=== PATIENT | female | born 1950 | race Caucasian/White ===

== ENCOUNTER 2017-01-24 17:20 | Emergency (ER) | payer OTHER ==
[2017-01-24] MEDS ORDERED: NS 1,000 ML IV ONE (17:58)
[2017-01-24] MEDS ORDERED: ONDANSETRON 4 MG/2 ML VIAL IVP ONE (17:58)
--- NOTE | 2017-01-24 18:00 | EDPHY ---
H & P Stated Complaint: nausea x 2 weeks;feels bloated;hard stool Time Seen by Provider: 01/24/17 17:46 HPI/ROS: Chief complaint: Nausea, abdominal discomfort History of present illness: This is a 66-year-old female who presents to the emergency department for evaluation of nausea. Patient reports the onset of symptoms over the last 2 weeks. Symptoms have been slowly worsening. She states over the last week she has developed abdominal discomfort. She describes a fullness. She does state she has had loss of appetite and decreasing stool output that is harder than usual. She denies precipitating factors. She denies alleviating factors. She denies other associated signs or symptoms including no fevers, no actual vomiting, no diarrhea, no urinary symptoms. Review of systems: A 10 point review of systems was obtained and other than described above was negative - Personal History Current Tetanus Diphtheria and Acellular Pertussis (TDAP): Yes - Medical/Surgical History Other PMH: Ortho - Family History Significant Family History: Cancer - Social History Smoking Status: Never smoked - Physical Exam Exam: General Appearance: Alert, nontoxic. Eyes: Pupils equal and round no pallor or injection. ENT, Mouth: Mucous membranes moist. Respiratory: There are no retractions, lungs are clear to auscultation. Cardiovascular: Regular rate and rhythm. Gastrointestinal: Bowel sounds are hypoactive. The abdomen is mildly distended. Diffuse tenderness. Neurological: Alert and oriented x4. Strength and sensation intact and symmetrical. Skin: Warm and dry, no rashes. Musculoskeletal: Neck is supple nontender. Extremities are symmetrical, full range of motion. Psychiatric: Patient is oriented X 3, there is no agitation. Constitutional: Initial Vital Signs Temperature (C) 36.7 C 01/24/17 17:22 Heart Rate 64 01/24/17 17:22 Respiratory Rate 18 01/24/17 17:22 Blood Pressure 137/87 H 01/24/17 17:22 O2 Sat (%) 95 01/24/17 17:22 O2 Delivery Mode Room Air Allergies/Adverse Reactions: Sulfa (Sulfonamide Antibiotics) Allergy (Intermediate, Verified 01/24/17 17:25) Hives clarithromycin [From Biaxin] Adverse Reaction (Mild, Verified 01/24/17 17:25) upset stomach Home Medications: Medication Instructions Recorded Lisinopril [Zestril 30 mg] 30 mg PO DAILY 11/03/12 Cephalexin [Keflex] 500 mg PO TID 7 Days 01/24/17 Ondansetron Odt [Zofran Odt 4 mg 4 mg PO Q4 #6 tab 01/24/17 (*)] Medical Decision Making - Diagnostics Imaging: CT of the abdomen pelvis is negative for acute findings ED Course/Re-evaluation: Patient is discussed with my secondary supervising physician Dr. Lake Garrison. Patient presents to the emergency room with nausea and abdominal fullness. On presentation she is nontoxic. Afebrile and vital signs are stable. Patient is evaluated as listed. There is concerned for urinary tract infection which we treated. No other significant findings are noted. I discussed with patient it is not clear as to the cause of her symptoms. However I do not believe inpatient management is warranted. Patient will be symptomatically treated with Zofran. She is asked to follow up with her primary care doctor for continued evaluation and care. Return precautions are given. Patient voiced understanding and agreement with plan. Differential Diagnosis: Included but not limited to gastritis, peptic ulcer disease, gastroenteritis, biliary tract disease, pancreatitis, colitis, appendicitis, bowel obstruction malignancy, GERD, ACS - Data Points Laboratory Results: Laboratory Results 01/24/17 18:02 01/24/17 18:02 Microbiology Results: MICROBIOLOGY 01/24/17 20:12 Urine,Clean Catch Urine Culture - Preliminary Two [place] Types Medications Given: Discontinued Medications Sodium Chloride (Ns) 1,000 mls @ 0 mls/hr IV ONCE ONE PRN Reason: Wide Open Stop: 01/24/17 17:59 Last Admin: 01/24/17 18:15 Dose: 1,000 mls Ondansetron HCl (Zofran) 4 mg IVP EDNOW ONE Stop: 01/24/17 17:59 Last Admin: 01/24/17 18:15 Dose: 4 mg Departure - Departure Disposition: Home, Routine, Self-Care Clinical Impression: Abdominal pain Qualifiers: Abdominal location: generalized Qualified Code(s): R10.84 - Generalized abdominal pain UTI (urinary tract infection) Qualifiers: Urinary tract infection type: site unspecified Hematuria presence: with hematuria Qualified Code(s): N39.0 - Urinary tract infection, site not specified ; R31.9 - Hematuria, unspecified Condition: Good Instructions: Urinary Tract Infection in Women (ED), Acute Abdominal Pain (ED) Additional Instructions: Follow-up with her primary care doctor next week for recheck If symptoms worsen or new symptoms develop return to the emergency department for recheck Referrals: Shantanu Workman MD [Primary Care Provider] - As per Instructions Prescriptions: Cephalexin [Keflex] 500 mg PO TID 7 Days Ondansetron Odt [Zofran Odt 4 mg (*)] 4 mg PO Q4 #6 tab
[2017-01-24] MEDS ORDERED: ONDANSETRON 4 MG/2 ML VIAL ONE (18:05)
[2017-01-24 18:15] LABS: % IMMATURE GRANULYOCYTES 0.2 % (0.0-1.1); ABSOLUTE IMMATURE GRANULOCYTES 0.01 10^3/uL (0.00-0.10); ADD DIFF? NO; ADD MORPH? NO; ADD SCAN? NO; ATYPICAL LYMPHOCYTE FLAG 10 (0-99); FRAGMENT RBC FLAG 0 (0-99); HEMATOCRIT 45.3 % (38.0-47.0); HEMOGLOBIN 15.4 g/dL (12.6-16.3); LEFT SHIFT FLG 0 (0-99); LIPEMIA HEMOLYSIS FLAG 90 (0-99); MEAN CELL HEMOGLOBIN 28.8 pg (27.9-34.1); MEAN CELL VOLUME 84.7 fL (81.5-99.8); MEAN PLATELET VOLUME 10.4 fL (8.7-11.7); PLATELET CLUMPS FLAG 0 (0-99); PLATELET COUNT 173 10^3/uL (150-400); RED BLOOD CELL COUNT 5.35 10^6/uL (4.18-5.33); RED CELL DISTRIBUTION WIDTH 13.2 % (11.5-15.2)
[2017-01-24 18:39] LABS: ALANINE AMINOTRANSFERASE 38 IU/L (9-52); ALBUMIN 4.4 g/dL (3.5-5.0); ALKALINE PHOSPHATASE 82 IU/L (38-126); ANION GAP 11 mEq/L (8-16); ASPARTATE AMINOTRANSFERASE 29 IU/L (14-46); BILIRUBIN,TOTAL 0.9 mg/dL (0.1-1.4); BILIRUBIN-CONJUGATED 0.4 mg/dL (0.0-0.5); BILIRUBIN-UNCONJUGATED 0.5 mg/dL (0.0-1.1); CALCIUM 10.3 mg/dL (8.5-10.4); CARBON DIOXIDE 24 mEq/l (22-31); CHLORIDE 105 mEq/L (97-110); GLOMERULAR FILTRATION RATE 55; GLUCOSE 104 mg/dL (70-100); POTASSIUM 4.4 mEq/L (3.5-5.2); SODIUM 140 mEq/L (134-144); TOTAL PROTEIN 7.5 g/dL (6.3-8.2)
[2017-01-24] MEDS ORDERED: IOPAMIDOL (ISOVUE-300) 100 ML BTL IV ONE (18:56)
--- NOTE | 2017-01-24 19:52 | CPEKG ---
Heart Rate: 58 RR Interval: 1034 P-R Interval: 172 QRSD Interval: 112 QT Interval: 444 QTC Interval: 437 P Sprague: 56 QRS Sprague: -2 T Wave Sprague: 134 EKG Severity - ABNORMAL ECG - EKG Impression: SINUS RHYTHM EKG Impression: INCOMPLETE RIGHT BUNDLE BRANCH BLOCK Electronically Signed By: Radha Andrade 24-Jan-2017 23:06:26
[2017-01-24 20:00] LABS: COLOR PALE YELLOW; LEUKOCYTE ESTERASE,URINE 1+ (NEGATIVE); NITRITE,URINE NEGATIVE (NEGATIVE)
[2017-01-24 21:07] VITALS: BP 105/54; PULSE 54; RESP 16; TEMP 97.7; O2SAT 93
== END 2017-01-24 21:07 | disposition home or self-care (01) ==
DX: R10.84 Generalized abdominal pain (principal); N39.0 Urinary tract infection, site not specified; B96.89 Other specified bacterial agents as the cause of diseases classified elsewhere
CPT/HCPCS: 74177; 93005; 96361; 96374; 99285; J2405; Q9967

== ENCOUNTER → 2017-03-28 | Outpatient (CLI) | payer OTHER | LOC: CIMAGING 08:43 | PROVIDERS: ATTEND Family Medicine | DX: J45.909 Unspecified asthma, uncomplicated (principal) | CPT/HCPCS: 71020-PO ==

== ENCOUNTER → 2017-06-30 | Outpatient (CLI) | payer OTHER | LOC: FIMAGING 08:46 | PROVIDERS: ATTEND Nurse Practitioner Women's Health | DX: Z12.31 Encounter for screening mammogram for malignant neoplasm of breast (principal); Z80.3 Family history of malignant neoplasm of breast | CPT/HCPCS: G0202 ==

== ENCOUNTER 2017-11-10 15:41 | Observation (INO) | payer OTHER ==
--- NOTE | 2017-11-10 15:54 | CPEKG ---
Heart Rate: 66 RR Interval: 909 P-R Interval: 154 QRSD Interval: 122 QT Interval: 436 QTC Interval: 457 P Cushing: 73 QRS Cushing: 124 T Wave Cushing: 146 EKG Severity - ABNORMAL ECG - EKG Impression: SINUS RHYTHM EKG Impression: RIGHT BUNDLE BRANCH BLOCK EKG Impression: Anterolateral ST depression similar though slightly more prominent when EKG Impression: compared to an EKG dated January 24, 2017 Electronically Signed By: Omid Garcia 10-Nov-2017 17:15:29
[2017-11-10] MEDS ORDERED: ASPIRIN 81 MG CHEWABLE TAB PO ONE (15:56)
--- NOTE | 2017-11-10 16:09 | EDPHY ---
H & P Stated Complaint: palpitations for months last night 3 hours. Some tightness Time Seen by Provider: 11/10/17 15:45 HPI/ROS: This patient complains of heart palpitations and subtle chest tightness last night. She explains that for the past few months she has had brief episodes of heart palpitations described as faster regular rhythm that is abrupt in onset usually lasts for 15 min or less. She feels sometimes that taking a deep breath resolved the episodes. However last night she had an episode that lasted for 3 hr before finally resolving. She had 1/10 chest tightness substernal location associated with this that was nonradiating. This morning she had a few fleeting episodes of racing heart. Currently she has no chest tightness. She drove herself here by private vehicle for evaluation of the symptoms. This is her 1st time of coming in for evaluation of her heart palpitations and tightness. She reports having had a heart scan with Dr. Ogden a few years ago with low to moderate calcium load at that time. He she has not had a stress test. ROS: No fevers or chills. No other constitutional symptoms. HEENT: No URI symptoms or other complaints Pulmonary: No shortness of breath. No cough. Cardiovascular: No lightheadedness. No leg swelling. No diaphoresis with her episode. GI: No abdominal pain. : No complaints Integumentary: No complaints Endocrine: No complaints Psychiatric: She has some baseline anxiety that is typical for her purge she reports no insomnia or other complaints. Complete review of symptoms is otherwise negative. Source: Patient Exam Limitations: No limitations - Personal History Current Tetanus Diphtheria and Acellular Pertussis (TDAP): Yes - Medical/Surgical History Hx Asthma: No Hx Chronic Respiratory Disease: No Hx Diabetes: No Hx Cardiac Disease: No Other PMH: Ortho. 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 - Physical Exam Exam: General Appearance: Alert, no distress. Eyes: Pupils equal and round no pallor or injection. ENT, Mouth: Mucous membranes moist. Respiratory: There are no retractions, lungs are clear to auscultation. Cardiovascular: Regular rate and rhythm. No murmur gallop rub. No peripheral edema. No calf swelling or tenderness Gastrointestinal: Abdomen is soft and nontender, no masses, bowel sounds normal. Neurological GCS 15. No focal deficits. Skin: Warm and dry, no rashes. Musculoskeletal: Neck is supple nontender. Extremities are symmetrical, full range of motion. Psychiatric: Mood and affect are normal DIFFERENTIAL DIAGNOSIS: After history and physical exam differential diagnosis was considered for atrial fibrillation, SVT, ventricular dysrhythmia, ischemic heart disease, metabolic disarray, thyroid disease, anxiety Constitutional: Initial Vital Signs Temperature (C) 36.6 C 11/10/17 15:49 Heart Rate 70 11/10/17 15:49 Respiratory Rate 18 11/10/17 15:49 Blood Pressure 151/96 H 11/10/17 15:49 O2 Sat (%) 93 11/10/17 15:49 O2 Delivery Mode Room Air Allergies/Adverse Reactions: Sulfa (Sulfonamide Antibiotics) Allergy (Intermediate, Verified 11/10/17 15:47) Hives clarithromycin [From Biaxin] Adverse Reaction (Mild, Verified 11/10/17 15:47) upset stomach Home Medications: Medication Instructions Recorded Lisinopril [Zestril 30 mg] 20 mg PO DAILY 11/03/12 Medical Decision Making - Diagnostics EKG Interpretation: 12 lead EKG performed at 3:53 p.m. indications heart palpitations Sinus rhythm at 66 Intervals: P R of 154, QRS of 122, QTC of 457 Seth: P of 73, QRS of 124, T of 146 ST segments are notable for ST depression in leads V2 through V6 - similar to an EKG dated 01/24/2017 no perhaps slightly more prominent. Overall assessment sinus rhythm, right bundle branch block, cannot r/o ischemic abnl in at. leads Imaging Results: Imaging Impressions Chest X-Ray 11/10/17 17:02 Impression: 1. Borderline-cardiomegaly. 2. There is no evidence of congestive heart failure or of a focal infiltrate. Two view chest x-ray: Scoliosis and kyphosis-mild/moderate with basilar atelectasis. Otherwise normal by my interpretation Imaging: I viewed and interpreted images myself ED Course/Re-evaluation: IV, monitor. Aspirin 324 chewed Patient stable on the monitor without significant ectopy. No chest pain today while here. Patient's CBC, metabolic panel, TSH, troponin & d-dimer are normal. Patient placed on nasal cannula O2 for room air O2 sat 91-92% Discussion: Patient presents with nonexertional chest tightness substernal location for a few hours yesterday associated with heart palpitations. She has had gradually increasing frequency of heart palpitations over the past few months. She has nonspecific changes on her EKG consisting prior right bundle branch block and anterolateral ST depression present on January EKG but perhaps slightly more prominent today. She has coronary artery disease risk factors of obesity, hypertension hypercholesterolemia. These findings along with her age give her a HEART score of 5 warranting obs admission for further evaluation. I counseled the patient regarding this. I think the patient's slight hypoxia attributable to her Obesity, kyphosis with atelectasis. I discussed these findings with the patient and her and answered their questions. The patient was initially hesitant to proceed with admission given lack of active symptoms but after discussing her constellation of risk factors and findings she and her are comfortable with the plan for admission. I spoke with Dr. Hernan Fernandes-hospitalist at [facility] accepts the patient for observation in the PCU for rule out DC and plan for stress test in the morning provided the patient is stable through the night. - Data Points Laboratory Results: Laboratory Results 11/10/17 16:05 11/10/17 16:05 11/10/17 11/10/17 11/10/17 16:10 16:05 16:05 WBC RBC Hgb Hct MCV MCH MCHC RDW Plt Count MPV Neut % (Auto) Lymph % (Auto) [place] % (Auto) Eos % (Auto) Baso % (Auto) Nucleat RBC Rel Count Absolute Neuts (auto) Absolute Lymphs (auto) Absolute Monos (auto) Absolute Eos (auto) Absolute Basos (auto) Absolute Nucleated RBC Immature Gran % Immature Gran # D-Dimer < 0.27 ug/mLFEU ug/mLFEU (0.00-0.50) Sodium 142 mEq/L mEq/L (134-144) Potassium 4.3 mEq/L mEq/L (3.5-5.2) Chloride 102 mEq/L mEq/L (97-110) Carbon Dioxide 24 mEq/l mEq/l (22-31) Anion Gap 16 mEq/L mEq/L (8-16) BUN 19 mg/dL mg/dL (7-23) Creatinine 1.0 mg/dL mg/dL (0.6-1.0) Estimated GFR 55 Glucose 91 mg/dL mg/dL (70-100) Calcium 10.3 mg/dL mg/dL (8.5-10.4) Troponin I 0.018 ng/mL ng/mL (0.000-0.034) TSH 2.940 uIU/mL uIU/mL (0.465-4.680) 11/10/17 16:05 WBC 6.18 10^3/uL 10^3/uL (3.80-9.50) RBC 5.45 10^6/uL H 10^6/uL (4.18-5.33) Hgb 15.7 g/dL g/dL (12.6-16.3) Hct 45.8 % % (38.0-47.0) MCV 84.0 fL fL (81.5-99.8) MCH 28.8 pg pg (27.9-34.1) MCHC 34.3 g/dL g/dL (32.4-36.7) RDW 13.1 % % (11.5-15.2) Plt Count 176 10^3/uL 10^3/uL (150-400) MPV 9.8 fL fL (8.7-11.7) Neut % (Auto) 60.5 % % (39.3-74.2) Lymph % (Auto) 30.4 % % (15.0-45.0) [place] % (Auto) 7.4 % % (4.5-13.0) Eos % (Auto) 1.0 % % (0.6-7.6) Baso % (Auto) 0.5 % % (0.3-1.7) Nucleat RBC Rel Count 0.0 % % (0.0-0.2) Absolute Neuts (auto) 3.74 10^3/uL 10^3/uL (1.70-6.50) Absolute Lymphs (auto) 1.88 10^3/uL 10^3/uL (1.00-3.00) Absolute Monos (auto) 0.46 10^3/uL 10^3/uL (0.30-0.80) Absolute Eos (auto) 0.06 10^3/uL 10^3/uL (0.03-0.40) Absolute Basos (auto) 0.03 10^3/uL 10^3/uL (0.02-0.10) Absolute Nucleated RBC 0.00 10^3/uL 10^3/uL (0-0.01) Immature Gran % 0.2 % % (0.0-1.1) Immature Gran # 0.01 10^3/uL 10^3/uL (0.00-0.10) D-Dimer Sodium Potassium Chloride Carbon Dioxide Anion Gap BUN Creatinine Estimated GFR Glucose Calcium Troponin I TSH Medications Given: Discontinued Medications Aspirin (Aspirin) 324 mg PO EDNOW ONE Stop: 11/10/17 15:57 Last Admin: 11/10/17 15:58 Dose: 324 mg Departure - Departure Disposition: [facility] Inpatient Acute Clinical Impression: Heart palpitations Chest pain Qualifiers: Chest pain type: precordial pain Qualified Code(s): R07.2 - Precordial pain Condition: Good
[2017-11-10 16:13] LABS: % IMMATURE GRANULYOCYTES 0.2 % (0.0-1.1); ABSOLUTE IMMATURE GRANULOCYTES 0.01 10^3/uL (0.00-0.10); ADD DIFF? NO; ADD MORPH? NO; ADD SCAN? NO; ATYPICAL LYMPHOCYTE FLAG 10 (0-99); FRAGMENT RBC FLAG 0 (0-99); HEMATOCRIT 45.8 % (38.0-47.0); HEMOGLOBIN 15.7 g/dL (12.6-16.3); LEFT SHIFT FLG 0 (0-99); LIPEMIA HEMOLYSIS FLAG 90 (0-99); MEAN CELL HEMOGLOBIN 28.8 pg (27.9-34.1); MEAN CELL HEMOGLOBIN CONCENTR. 34.3 g/dL (32.4-36.7); MEAN PLATELET VOLUME 9.8 fL (8.7-11.7); PLATELET CLUMPS FLAG 0 (0-99); PLATELET COUNT 176 10^3/uL (150-400); RED BLOOD CELL COUNT 5.45 10^6/uL (4.18-5.33); RED CELL DISTRIBUTION WIDTH 13.1 % (11.5-15.2)
[2017-11-10 16:37] LABS: TROPONIN I 0.018 ng/mL (0.000-0.034)
[2017-11-10 16:38] LABS: CALCIUM 10.3 mg/dL (8.5-10.4); POTASSIUM 4.3 mEq/L (3.5-5.2)
[2017-11-10] MEDS ORDERED: LISINOPRIL 20 MG TAB PO SCH (20:39)
[2017-11-10] MEDS ORDERED: ACETAMINOPHEN 325 MG TAB PO PRN (20:50)
[2017-11-10] MEDS ORDERED: ONDANSETRON DISINTEGRATING 4 MG TAB PO PRN (20:50)
[2017-11-10] MEDS ORDERED: oxyCODONE IR 5 MG TAB PO PRN (20:50)
[2017-11-10] MEDS ORDERED: ONDANSETRON 4 MG/2 ML VIAL IVP PRN (20:50)
--- NOTE | 2017-11-10 21:22 | GHP ---
[f rep st] HISTORY AND PHYSICAL DATE OF ADMISSION: 11/10/2017 CHIEF COMPLAINT: Palpitations. HISTORY OF PRESENT ILLNESS: 67-year-old female presents with palpitations. Described as a slightly irregular feeling in her chest. She took her pulse. It was never going extremely fast. Just seem t o be irregular to her. She has never fainted. She did have some chest pressure which was associated with these. She normally exercises and does not get any chest pressure with that. She has no known history of heart disease. PAST MEDICAL/SURGICAL HISTORY: Hypertension. MEDICATIONS: Please see medication reconciliation. ALLERGIES: Sulfa, clarithromycin, amoxicillin, Augmentin. FAMILY HISTORY: No known heart disease. SOCIAL HISTORY: She drinks a few glasses of wine a week. She is accompanied by her daughter. She d oes not smoke. REVIEW OF SYSTEMS: 10-point review of systems is conducted and is negative except per HPI. PHYSICAL EXAM: VITAL SIGNS: Blood pressure 161/90, heart rate 57, respiration rate 18, saturating 9 4% on 2 L. Temperature 36.7. GENERAL: Ms. Fung is a pleasant female who is resting comfortably, in no acute distress. HEENT: Normocephalic, atraumatic. CARDIOVASCULAR: Regular rate and rhythm. No murmurs, rubs, or gallops. No elevated JVD. No lower extremity edema. PULMONARY: Lungs clear to auscultation bilaterally. ABDOMEN: Soft, nontender, nondistended. SKIN: No rash. GENITOURINAR Y: No Hester. NEUROLOGIC: Alert and oriented x3. She is moving all extremities. PSYCHIATRIC: Nor mal mood and affect. LABORATORY DATA: CBC is normal. D-dimer is negative. Basic metabolic panel is normal. Troponin is negative. TSH is 2.9. DATA: 1. Chest x-ray, which I personally viewed and interpreted, shows nothing acute. 2. EKG, which I personally viewed and interpreted and compared to January, shows mild ST depression an d T wave inversions in leads I and L, slightly worse in lead V2. IMPRESSION AND PLAN: 1. Palpitations/chest pressure: With her mild EKG abnormalities, I think inpatient stress test is a ppropriate. Will rule her out for acute coronary syndrome with troponins, monitor on telemetry. Bravo tamera check echocardiogram to evaluate her heart structure, given the palpitations. Will check a treadmi ll EKG tomorrow to evaluate for cardiac ischemia. She is comfortable with this plan. 2. Hypertension: She is taking lisinopril. Will continue this. 3. Would consider outpatient cardiac cath lab technologist if all other workup is negative. /[id number]/MODL
[2017-11-11 04:21] LABS: % IMMATURE GRANULYOCYTES 0.2 % (0.0-1.1); ABSOLUTE IMMATURE GRANULOCYTES 0.01 10^3/uL (0.00-0.10); ADD DIFF? NO; ADD MORPH? NO; ADD SCAN? NO; ATYPICAL LYMPHOCYTE FLAG 0 (0-99); FRAGMENT RBC FLAG 0 (0-99); HEMATOCRIT 42.1 % (38.0-47.0); HEMOGLOBIN 14.2 g/dL (12.6-16.3); LEFT SHIFT FLG 0 (0-99); LIPEMIA HEMOLYSIS FLAG 80 (0-99); MEAN CELL HEMOGLOBIN CONCENTR. 33.7 g/dL (32.4-36.7); MEAN CELL VOLUME 86.1 fL (81.5-99.8); MEAN PLATELET VOLUME 10.5 fL (8.7-11.7); PLATELET CLUMPS FLAG 0 (0-99); PLATELET COUNT 148 10^3/uL (150-400); RED BLOOD CELL COUNT 4.89 10^6/uL (4.18-5.33); RED CELL DISTRIBUTION WIDTH 13.2 % (11.5-15.2)
[2017-11-11 04:43] LABS: ANION GAP 11 mEq/L (8-16); CALCIUM 9.6 mg/dL (8.5-10.4); CARBON DIOXIDE 24 mEq/l (22-31); CHLORIDE 106 mEq/L (97-110); GLOMERULAR FILTRATION RATE 55; GLUCOSE 91 mg/dL (70-100); POTASSIUM 4.3 mEq/L (3.5-5.2); SODIUM 141 mEq/L (134-144)
[2017-11-11 04:49] LABS: TROPONIN I < 0.012 ng/mL (0.000-0.034)
[2017-11-11 05:05] VITALS: TEMP 97.9
--- NOTE | 2017-11-11 09:03 | CPEKG ---
Heart Rate: 63 RR Interval: 952 P-R Interval: 176 QRSD Interval: 82 QT Interval: 432 QTC Interval: 443 P [place]: 60 QRS [place]: -31 T Wave [place]: 135 EKG Severity - OTHERWISE NORMAL ECG - EKG Impression: SINUS RHYTHM EKG Impression: EARLY R-WAVE PROGRESSION EKG Impression: LEFT AXIS DEVIATION EKG Impression: NO SIG CHANGE COMPARED WITH 11/10/2017 Electronically Signed By: Brandie Thrasher 11-Nov-2017 18:51:07
[2017-11-11 12:44] VITALS: RESP 18
--- NOTE | 2017-11-11 13:24 | ECHO ---
[email or web address] [address] Main: [phone] Fax: [email or web address] Echocardiogram Name: CHUCK BELLA MR#: [id number] Study Date: 11/11/2017 Study Time: 10:18 AM Date of : 1950 Age: 67 year(s) Height: 162.6 cm (64 in.) Weight: 79.83 kg (176 lb.) BSA: 1.85 m2 Gender: Female Examination: Echo Indication: Palpatations Image Quality: Contrast: Requested by: Hernan Fernandes BP: 119 mmHg/78 mmHg Heart Rate: Rhythm: Indication: Palpatations Procedure Staff Radar Mechanic: Kellie Ann Reading Physician: Ryan Trevino Requesting Provider: Conclusions: Normal size left ventricle. Mild concentric LV hypertrophy. Normal global systolic LV function. EF is 69 %. Normal size right ventricle. Normal RV function. The left atrium is normal in size. The right atrium is normal in size. The pulmonary artery pressure is normal. Measurements: Chambers Valvular Assessment AV/MV Valvular Assessment TV/PV Normal Normal Normal Name Value Range Name Value Range Name Value Range Ao Elvie (MM): 3.6 cm (2.2 cm-3.7 AV meanP mmHg ( - ) TR Vmax: 2.40 mm/s ( - ) cm) TR PGmax: 23 mmHg ( - ) IVSd (2D): 1.1 cm (0.6 cm-1.1 syst. PAP: 28 mmHg ( - ) cm) LVDd (2D): 4.3 cm (3.9 cm-5.3 cm) LVDs (2D): 2.8 cm (2.1 cm-4 cm) LVPWd (2D): 1.2 cm ( - ) LVEF (MOD4): 69 % (>=55 %) Continued Measurements: Chambers Valvular Assessment TV/PV Name Value Name Value Patient: CHUCK BELLA Study Date: 11/11/2017 Page 1 of 2 10:18 AM LADs: 3.9 cm CVP (est.): 5 mmHg LADs Lon.1 cm LA Area: 20.8 cm2 Findings: Left Ventricle: Normal size left ventricle. Mild concentric LV hypertrophy. Normal global systolic LV function. EF is 69 %. No regional wall motion abnormality. Right Ventricle: Normal size right ventricle. Normal RV function. Left Atrium: The left atrium is normal in size. Normal appearing atrial septum. Right Atrium: The right atrium is normal in size. Chiari's network discernible in right atrium. Mitral Valve: The mitral valve is normal in appearance and function. Aortic Valve: The aortic valve is normal in appearance and function. There is no aortic valve regurgitation. Tricuspid Valve: The tricuspid valve is normal in appearance and function. Trivial tricuspid valve regurgitation. The pulmonary artery pressure is normal. Pulmonic Valve: The pulmonic valve is normal in appearance and function. Aorta: The aorta is normal. Pericardium: No pericardial effusion. (No Signature Object) Patient: CHUCK BELLA Study Date: 11/11/2017 Page 2 of 2 10:18 AM [id number]
--- NOTE | 2017-11-11 13:58 | ASMTCMCOM ---
CM Note CM Note Notes: 11/11/2017 Case Management Note Reviewed chart, spoke w/RN. There are no case management d/c needs identified d/t pt employment status, famiy support and activity levels prior to admission. There aer no PT or OT evals ordered at this time. Case Management d/c poc: Home independent with follow up as directed. Case Management available if needs change. Date Signed: 11/11/2017 01:58 PM Electronically Signed By:Nat Saxena RN
[2017-11-11 16:19] VITALS: BP 113/73; PULSE 59; O2SAT 92
[2017-11-11] MEDS ORDERED: LISINOPRIL 20 MG TAB PO SCH (17:00)
--- NOTE | 2017-11-11 17:47 | CPR ---
[f rep st] NONINVASIVE CARDIAC PROCEDURE REPORT DATE OF PROCEDURE: 11/11/2017 PROCEDURE: Exercise treadmill test. INDICATION: The patient is a 67-year-old female who presented to the hospital complaining of 3 hours of palpitations. This was not associated with shortness of breath, lightheadedness, or dizziness. She may have had some chest tightness associated with the palpitations, but she relates this to anxie ty. She is very active exercising 3-4 times a week and denies any exertional chest discomfort. RISK FACTORS FOR CORONARY ARTERY DISEASE: Include hypertension. She denies any history of hyperlipi demia, diabetes, ongoing tobacco, or family history of coronary artery disease. DESCRIPTION OF PROCEDURE: Consent was obtained, and the patient was placed on continuous telemetry. Her resting EKG reveals normal sinus rhythm with flat ST depression of 1 mm in the inferior leads. The patient exercised on the treadmill for just under 9 minutes without any associated chest discomfo rt. She had rare PVCs with initial exertion that resolved by the 2nd stage of exercise. They appear to be coming from 2 different foci. She did develop ST depression of 1 mm in the inferior and later al leads with exercise. ST changes recovered 5 minutes into the recovery phase. Her blood pressure at rest was 140/80 and increased appropriately peaking at 180/80. Her blood pressure returned to bas alicia within 5 minutes of recovery. PLAN: Glasscock treadmill score of 4, which makes this an intermediate risk stress test. If there is a high suspicion for coronary disease, consider further cardiac evaluation. /[id number]/MODL
--- NOTE | 2017-11-11 19:47 | GDS ---
[f rep st] DISCHARGE SUMMARY DISCHARGE DIAGNOSES: 1. Heart palpitations, resolved. 2. Atypical chest pain, resolved. 3. Hypertension. CONSULTANTS: None. IMAGING STUDIES/PROCEDURES: Echocardiogram, August 12, 2017, showed a normal left ventricular fun ction with an ejection fraction of 69% and no significant valvular abnormalities. HISTORY: For details, please see dictated History and Physical dated November 10, 2017. In brief, the patient is a 67-year-old female with a history of hypertension and anxiety, who present ed to the emergency department with palpitations. She states her pulse felt irregular, but she did n ot complain of a rapid heart rate. She also had some associated chest pressure. She was admitted to the hospital for further evaluation. HOSPITAL COURSE: Patient was admitted to the cardiac telemetry unit. She does have some mild EKG ab normalities on admission with mild ST depression and T-wave inversions in leads I, aVL, and V2, thoug h there were no evolutionary EKG changes. Her troponins were negative x3. She had a negative D-dime r. She underwent an exercise treadmill stress test on the day of discharge, which was intermediate r isk; however, she has remained chest pain free. PVCs were noted during her stress test. I think she is safe to discharge home, and I recommend she have close followup with [facility] for an outpatient cardiac event monitor to identify the rhythm she is in when she experiences palpitations. In addition, she can discuss further cardiac risk stratification. DISPOSITION: Patient is discharged home in stable condition. FOLLOWUP: Cherri Corona at [facility] within 1 week for cardiac event monitor and possibly further outpatient stress testing. DISCHARGE MEDICATIONS: Please see [employer] for completed outpatient medication list. There are no n ew medications at discharge. She will continue her lisinopril as previously prescribed. Greater than 30 minutes were spent coordinating this discharge. /[id number]/MODL
== END 2017-11-11 16:09 | disposition home or self-care (01) ==
LOC: CED 15:41 → CEDHOLD 17:10 → F2W 19:10
PROVIDERS: ADMIT Student in an Organized Health Care Education/Training Program; ATTEND Student in an Organized Health Care Education/Training Program
DX: R00.2 Palpitations (principal); R07.9 Chest pain, unspecified; I10 Essential (primary) hypertension
CPT/HCPCS: 71020; 93005; 93017; 93306; G0378; 80048-PO; 84443-PO; 84484-PO; 85025-PO; 85378-PO

== ENCOUNTER 2018-02-15 12:19 | Emergency (ER) | payer OTHER ==
[2018-02-15 12:31] VITALS: RESP 18
[2018-02-15 13:11] LABS: PLATELET COUNT 179 10^3/uL (150-400)
--- NOTE | 2018-02-15 14:35 | EDPHY ---
H & P Stated Complaint: 12 days not feeling well, low appetite, constipation, abdominal pressure Time Seen by Provider: 02/15/18 12:33 HPI/ROS: CHIEF COMPLAINT: Abdominal discomfort, malaise HISTORY OF PRESENT ILLNESS: This is a 67-year-old female with a history of was been diagnosed as anxiety for which she has been taking 0.125 mg of Xanax twice daily. 12 days ago she developed some nausea and diminished appetite. For the past 2 days she has been having constipation and what she thinks are likely gas pains. She has had some small formed bowel movements, not typical of her usual stooling pattern. She has been experiencing lower abdominal pressure. At 1 point she noticed she was having some sweats. She has an overall feeling of malaise and has not regained her appetite. She discontinued her Xanax 5 days ago. Most of her symptoms predated the discontinuation of the Xanax, but the abdominal symptoms developed 2 days ago and seemed to be worsening. She has not been aware of fever although she did have some sweats or hot flashes. She has not had vomiting. She has not had diarrhea. She had some urinary frequency yesterday. She reports some bilateral low back pain at the level of her waist. She reports a family history of colon cancer in her father who at age 57 and ovarian cancer in an aunt. She is particularly concerned that she might have ovarian cancer. She had a colonoscopy 5 years ago. REVIEW OF SYSTEMS: A ten point review of systems was performed and is negative with the exception of the items mentioned in the HPI. Past medical history: Hypertension and anxiety Past surgical history: Removal of benign thyroid mass Family history: As per HPI Social history: She does not use tobacco products. She rarely drinks wine. She lives with her . 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 General Appearance: Alert. Vital signs reviewed. Eyes: Pupils equal and round, no conjunctival injection, no discharge. Anicteric. ENT, Mouth: Mucous membranes are moist, no oropharyngeal erythema or edema. Neck: No lymphadenopathy, supple. Respiratory: Lungs are clear to auscultation; no wheezes, rales, or rhonchi. Cardiovascular: Regular rate and rhythm; no murmur, rub, or gallop. Gastrointestinal: Abdomen is soft and nontender, no masses or organomegaly, bowel sounds normal. Skin: Warm and dry, no rashes on exposed skin, normal color. Back: Nontender to palpation over the thoracolumbar spine. No CVAT. Extremities: No lower extremity edema, no calf tenderness or swelling. Neurological: Alert and oriented. Moving all four extremities easily and equally. Psychiatric: Normal affect. - Personal History Current Tetanus/Diphtheria Vaccine: Yes Current Tetanus Diphtheria and Acellular Pertussis (TDAP): Yes Tetanus Vaccine Date: < 10 years - Medical/Surgical History Hx Asthma: No Hx Chronic Respiratory Disease: No Hx Diabetes: No Hx Cardiac Disease: No Hx Renal Disease: No Hx Cirrhosis: No Hx Alcoholism: No Hx HIV/AIDS: No Hx Splenectomy or Spleen Trauma: No Other PMH: HTN, PARAHYPERTHYROID (ASYMPT) - Social History Smoking Status: Never smoked Constitutional: Initial Vital Signs Temperature (C) 37 C 02/15/18 12:28 Heart Rate 65 02/15/18 12:28 Respiratory Rate 18 02/15/18 12:28 Blood Pressure 140/84 H 02/15/18 12:28 O2 Sat (%) 92 02/15/18 12:28 O2 Delivery Mode Room Air Allergies/Adverse Reactions: Sulfa (Sulfonamide Antibiotics) Allergy (Intermediate, Verified 02/15/18 12:28) Hives clarithromycin [From Biaxin] Allergy (Mild, Verified 02/15/18 12:28) upset stomach amoxicillin [From Augmentin] Allergy (Verified 02/15/18 12:28) clavulanic acid [From Augmentin] Allergy (Verified 02/15/18 12:28) Home Medications: Medication Instructions Recorded Lisinopril [Zestril 20 mg (*)] 20 mg PO DAILY@17 11/10/17 Cephalexin [Keflex] 500 mg PO BID #14 cap 02/15/18 Medical Decision Making ED Course/Re-evaluation: Physical examination is unremarkable. CBC and chemistries are reviewed. Creatinine is 1.1. She has had elevated creatinine in the past. Urinalysis is positive for leukocyte esterase, 10-15 white blood cells, occasional renal cells , hyaline casts, and 2+ epithelial cells. I am not convinced that this is a clean-catch. She did report some urinary symptoms and I think it is reasonable to start her on treatment for a urinary tract infection while culture is pending. I do not suspect pyelonephritis. She is not ill-appearing or febrile. She does not have CVA tenderness. Her abdominal abdomen remains soft and with mild diffuse tenderness while in the emergency department. No peritoneal signs. I do not suspect cholecystitis , pancreatitis, appendicitis, or diverticulitis. Her main concern is that she might have ovarian cancer. I explained to her that I cannot diagnose this illness in the emergency department. She is advised to follow up with her primary care physician. She knows that her creatinine is slightly elevated today. She also knows that her urinalysis is abnormal. In addition she is aware that today's blood pressure readings are high. The importance of follow-up was stressed. We reviewed the danger signs that should prompt her to be re-evaluated. - Data Points Laboratory Results: Laboratory Results 02/15/18 12:35 02/15/18 12:35 Microbiology Results: MICROBIOLOGY 02/15/18 13:00 Urine,Clean Catch Urine Culture - Final Staphylococcus Epidermidis Gram Neg Jose Guadalupe Nonlactose Ferm. Three [place] Types Departure - Departure Disposition: Home, Routine, Self-Care Clinical Impression: Urinary tract infection Qualifiers: Urinary tract infection type: acute cystitis Hematuria presence: with hematuria Qualified Code(s): N30.01 - Acute cystitis with hematuria Condition: Good Instructions: Urinary Tract Infection in Women (ED) Additional Instructions: As we discussed, it is not entirely clear whether you have a urinary tract infection or whether this is causing her symptoms. I think it is reasonable to start you on an antibiotic. Follow up with Dr. Workman tomorrow as planned. Let him know your concerns. Return if you are worse in any way. Referrals: Shantanu Workman MD [Primary Care Provider] - As per Instructions Prescriptions: Cephalexin [Keflex] 500 mg PO BID #14 cap
[2018-02-15 14:41] VITALS: BP 137/69; PULSE 76; TEMP 98.4; O2SAT 95
== END 2018-02-15 14:46 | disposition home or self-care (01) ==
LOC: CED 12:19
DX: N30.01 Acute cystitis with hematuria (principal); B96.89 Other specified bacterial agents as the cause of diseases classified elsewhere; I10 Essential (primary) hypertension
CPT/HCPCS: 80048-PO; 81003-PO; 81015-PO; 85025-PO

== ENCOUNTER → 2018-02-17 | Outpatient (CLI) | payer OTHER | LOC: CIMAGING 10:09 | PROVIDERS: ATTEND Family Medicine | DX: R10.9 Unspecified abdominal pain (principal); M54.5 Low back pain | CPT/HCPCS: 74019-PO ==

== ENCOUNTER → 2018-11-26 | Outpatient (CLI) | payer OTHER | LOC: FIMAGING 12:03 | PROVIDERS: ATTEND Physician Assistant | DX: R10.2 Pelvic and perineal pain (principal); R05 Cough; R14.0 Abdominal distension (gaseous); M47.9 Spondylosis, unspecified; Z78.0 Asymptomatic menopausal state ==